=== PATIENT | female | born 1935 | race Caucasian/White ===

== ENCOUNTER 2018-10-12 07:39 | Emergency (ER) | payer BC, MEDICARE ==
[2018-10-12 08:16] VITALS: RESP 20; TEMP 98.1
[2018-10-12 08:45] LABS: BASOPHILS % (AUTO) 0 % (0-3); EOSINOPHILS % (AUTO) 2 % (0-9); HEMATOCRIT 37 % (35-47); HEMOGLOBIN 11.8 gm/dl (12.0-15.5); LYMPHOCYTES % (AUTO) 14.3 % (10-50); MEAN CORPUSCULAR VOLUME 88 fL (81-99); MONOCYTES % (AUTO) 8.2 % (0-12); NEUTROPHILS % (AUTO) 75.2 % (37-80)
[2018-10-12 08:53] LABS: CARBON DIOXIDE 27.5 mEq/L (21-32); CREATININE 1.31 mg/dl (0.60-1.00); POTASSIUM 4.2 mMol/L (3.5-5.1)
[2018-10-12] MEDS ORDERED: AZITHROMYCIN 500 MG PDS IV SCH (09:15)
[2018-10-12] MEDS ORDERED: SODIUM CHLORIDE 0.9% 1000ML 1,000 ML IV SCH (09:15)
[2018-10-12] MEDS ORDERED: SODIUM CHLORIDE 0.9% FLUSH 10 ML SOL IV PRN (09:55)
[2018-10-12] MEDS ORDERED: AZITHROMYCIN 500 MG PDS IV ONE (10:03)
[2018-10-12 15:00] VITALS: BP 145/68; PULSE 70; O2SAT 95
== END 2018-10-12 11:38 | disposition home or self-care (01) ==
LOC: ED 07:39
DX: J18.9 Pneumonia, unspecified organism (principal); R06.02 Shortness of breath
CPT/HCPCS: 36415; 80048; 85025; 96365; 99283; 99285; J0456